=== PATIENT | male | born 1990 | race Caucasian/White ===

== ENCOUNTER 2016-12-24 14:45 | Emergency (ER) | payer BC ==
[2016-12-24 15:02] VITALS: BMI 24.4
[2016-12-24 15:07] VITALS: RESP 18; TEMP 98.4; O2SAT 100
--- NOTE | 2016-12-24 15:46 | RAD ---
PROCEDURE: Right Ankle Radiographs. HISTORY: ankle pain/foot pain s/p injury COMPARISON: None FINDINGS: BONES: Normal. No fracture. JOINTS: Normal. No osteoarthritis. Ankle mortise maintained. Talar dome intact SOFT TISSUES: Normal. OTHER FINDINGS: None. IMPRESSION: Normal right ankle radiographs.
--- NOTE | 2016-12-24 15:46 | RAD ---
PROCEDURE: Right Foot Radiographs. HISTORY: ankle/foot pain s/p injury COMPARISON: None. FINDINGS: BONES: Normal. No fracture. JOINTS: Normal. SOFT TISSUES: Normal. OTHER FINDINGS: None. IMPRESSION: Normal right foot radiographs.
--- NOTE | 2016-12-24 15:53 | ED PDOC ---
Arrival/HPI - General Chief Complaint: Lower Extremity Problem/Injury Time Seen by Provider: 12/24/16 15:02 Historian: Patient - History of Present Illness Narrative History of Present Illness (Text): 12/24/16 15:48 26-year-old male presents today with a 4 to five-day history of right ankle and foot pain. Patient states a few days ago he was running and believes that he twisted his foot and ankle. Patient states since then he's having pain to the dorsal aspect of the foot and as well as the right ankle. He denies numbness weakness or tingling in extremity. Patient states the pain is worse with attempted ambulation. Denies chest pain or shortness of breath. Denies calf pain. Denies proximal fibular tenderness. Patient states he took some Tylenol for pain at home without improvement. Patient states the pain is minimal at rest but it is very uncomfortable in the foot when he tries to ambulate. Time/Duration: < week (4-5 days ago) Symptom Onset: Sudden Symptom Course: Unchanged Quality: Aching Severity Level: 4 Past Medical History - Provider Review Nursing Documentation Reviewed: Yes - Travel History Have you recently traveled outside [place] w/in the past 3 mons?: No - Infectious Disease Hx of Infectious Diseases: None - Tetanus Immunization Tetanus Immunization: Unknown - Psychiatric Hx Substance Use: No - Anesthesia Hx Anesthesia: No Hx Anesthesia Reactions: No Hx Malignant Hyperthermia: No Family/Social History - Physician Review Nursing Documentation Reviewed: Yes Family/Social History: Unknown Family HX Smoking Status: Never Smoked Hx Alcohol Use: No Hx Substance Use: No Allergies/Home Meds Allergies/Adverse Reactions: Allergies No Known Allergies Allergy (Verified 02/27/15 02:51) Review of Systems - Review of Systems Constitutional: absent: Fatigue, Fevers Respiratory: absent: SOB, Cough Cardiovascular: absent: Chest Pain, Palpitations Gastrointestinal: absent: Abdominal Pain, Diarrhea, Nausea, Vomiting Genitourinary Male: absent: Dysuria Musculoskeletal: Arthralgias. absent: Back Pain, Neck Pain Skin: absent: Rash, Pruritis Neurological: absent: Headache, Dizziness Psychiatric: absent: Anxiety, Depression Physical Exam Vital Signs Reviewed: Yes Vital Signs Temp Pulse Resp BP Pulse Ox 12/24/16 15:06 98.4 F 90 18 127/84 100 Temperature: Afebrile Blood Pressure: Normal Pulse: Regular Respiratory Rate: Normal Appearance: Positive for: Well-Appearing, Non-Toxic, Comfortable Pain Distress: None Mental Status: Positive for: Alert and Oriented X 3 - Systems Exam Head: Present: Atraumatic Mouth: Present: Moist Mucous Membranes Respiratory/Chest: Present: Clear to Auscultation Cardiovascular: Present: Regular Rate and Rhythm Abdomen: No: Tenderness Lower Extremity: Present: NORMAL PULSES, Normal ROM, Tenderness (right ankle/ foot: + ttp over dorsal aspect of proximal foot; no edema, no erythema; no ecchymosis; minimal anterior ankle tenderness without erythema, edema or ecchymosis; sensation and distal pulses intact; cap refill <2. full rom of ankle and foot. no proximal fibular tenderness, no calf tenderness. ), Neurovascularly Intact, Capillary Refill < 2 s. No: Edema, CALF TENDERNESS, Swelling, Erythema, Deformity Neurological: Present: GCS=15 Skin: Present: Warm, Dry, Normal Color. No: Rashes Psychiatric: Present: Alert, Oriented x 3 Medical Decision Making ED Course and Treatment: 12/24/16 15:54 Patient nontoxic well-appearing in no distress with stable vital signs X-rays of the right ankle; no fracture as read by the radiologist xrays of the right foot; no fracture as read by the radiologist. toradol IM Patient placed in short leg posterior splint crutches given for ambulation. I discussed all results in depth with the patient advised to followup with the orthopedist within the next 2 days. Advised return if symptoms worsen persist or new symptoms develop i advised the patient that although the xrays show no fracture; there is still a possibility for ligamentous or tendon injury the patient must see the orthopedist for further evaluation. Patient verbalizes understanding of discharge instructions and need for immediate followup. all aspects of this case were discussed the attending of record. Impression: Ankle pain, foot pain Motrin every 6 hours as needed for pain Rest, ice, compression, elevation Use crutches for ambulation Followup with the orthopedist within the next 2 days Followup with primary care physician within the next 2 days Return if symptoms worsen persist or if new symptoms develop - RAD Interpretation Radiology Orders: 12/24/16 15:08 ANKLE RIGHT 3 VIEWS ROUTINE [RAD] Stat FOOT RIGHT 3 VIEWS ROUTINE [RAD] Stat - Medication Orders Current Medication Orders: Discontinued Medications Ketorolac Tromethamine (Toradol) 60 mg IM STAT STA Stop: 12/24/16 15:03 Last Admin: 12/24/16 15:11 Dose: 60 mg Procedures - Splinting Location: right ankle/foot Hand-Made Type: fiberglass Splint: posterior short leg splint Pre-Proc Neuro Vasc Exam: normal Post-Proc Neuro Vasc Exam: normal Disposition/Present on Arrival - Present on Arrival Any Indicators Present on Arrival: No History of DVT/PE: No History of Uncontrolled Diabetes: No Urinary Catheter: No History of Decub. Ulcer: No History Surgical Site Infection Following: None - Disposition Have Diagnosis and Disposition been Completed?: Yes Diagnosis: Ankle pain, Foot pain Disposition: HOME/ ROUTINE Disposition Time: 15:58 Patient Plan: Discharge Patient Problems: Current Active Problems Problem Status Onset Ankle pain Acute Foot pain Acute Condition: GOOD Discharge Instructions (ExitCare): Arthralgia (ED) Additional Instructions: Motrin every 6 hours as needed for pain Rest, ice, compression, elevation Use crutches for ambulation Followup with the orthopedist within the next 2 days Followup with primary care physician within the next 2 days Return if symptoms worsen persist or if new symptoms develop Prescriptions: Ibuprofen [Motrin] 600 mg PO Q6H PRN #20 tab PRN Reason: pain/fever reduction Referrals: Flaquito Rios III, MD [Medical Doctor] - Follow up with primary [facility] [Outside] - Follow up with primary [facility] [Outside] - Follow up with primary Faustino Momin MD [Staff Provider] - Follow up with primary Forms: [employer] ([employer]i), WORK NOTE
[2016-12-24 17:01] VITALS: BP 119/80; PULSE 91
== END 2016-12-24 16:30 | disposition home or self-care (01) ==
LOC: ED 14:45
DX: M25.571 Pain in right ankle and joints of right foot (principal); M79.671 Pain in right foot
CPT/HCPCS: 73610; 73630; 96372; 99283; J1885